=== PATIENT | male | born 1970 | race Caucasian/White ===

== ENCOUNTER 2018-03-09 16:42 | Emergency (ER) | payer OTHER ==
[~2018-03-09] VITALS: Ht 177.8 cm; Wt 87.1 kg
[2018-03-09 16:48] VITALS: Ht 177.8 cm; Wt 87.1 kg
[2018-03-09 17:33] VITALS: BP 147/103
== END 2018-03-09 17:27 | disposition short-term general hospital (02) ==
LOC: ED 16:42
DX: R29.810 Facial weakness (principal); R20.0 Anesthesia of skin
CPT/HCPCS: 36415; 82962; 83880; Q0092